=== PATIENT | male | born 1995 | race Caucasian/White ===

== ENCOUNTER 2017-04-28 21:47 | Emergency (ER) | payer BC, MEDICAID ==
[2017-04-28 21:56] VITALS: BP 100/70; PULSE 70; RESP 14; TEMP 97.9; O2SAT 98
--- NOTE | 2017-04-28 22:37 | C.PDOC ---
History Of Present Illness 21 year old male presents to the ER with a complaint of right hand pain after he tripped and landed on his right hand. 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 Time Seen by Provider: 04/28/17 22:03 Chief Complaint (Nursing): Finger,Hand,&Wrist History Per: Patient History/Exam Limitations: no limitations Onset/Duration Of Symptoms: Hrs Current Symptoms Are (Timing): Still Present Exacerbating Factor(s): Strenuous Use Of Affected Area Recent travel outside of the [place]: No Past Medical History Reviewed: Historical Data, Nursing Documentation, Vital Signs Vital Signs: Last Vital Signs Temp 97.9 F 04/28/17 21:55 Pulse 70 04/28/17 21:55 Resp 14 04/28/17 21:55 BP 100/70 04/28/17 21:55 Pulse Ox 98 04/29/17 01:42 - Medical History PMH: Asthma (seasonal asthma ) Surgical History: No Surg Hx Family History: States: Unknown Family Hx - Social History Hx Alcohol Use: Yes Hx Substance Use: No - Immunization History Hx Tetanus Toxoid Vaccination: No Hx Influenza Vaccination: No Hx Pneumococcal Vaccination: No Review Of Systems Musculoskeletal: Positive for: Hand Pain Neurological: Negative for: Weakness, Numbness Physical Exam - Physical Exam Appears: Non-toxic, No Acute Distress Skin: Warm, Dry Head: Atraumatic, Normacephalic Eye(s): bilateral: Normal Inspection Neck: Normal Male Genital: Normal Inspection Extremity: Normal ROM (x4), Tenderness (over 4th and 5th MCP with excoriation of 3rd, 4th, and 5th MCP of right hand.), Capillary Refill (<2 seconds), No Deformity, No Swelling Extremity: Bilateral: Normal Color And Temperature Pulses: Left Radial: Normal, Right Radial: Normal Neurological/Psych: Oriented x3, Normal Speech, Normal Cognition, Normal Motor, Normal Sensation ED Course And Treatment O2 Sat by Pulse Oximetry: 98 (Room air) Pulse Ox Interpretation: Normal - Other Rad Right hand x-ray X-Ray: Interpreted by Me, Viewed By Me Interpretation: no acute fractures or dislocation Progress Note: Right hand x-ray ordered, results were negative. Patient remains stable with no extremity numbness or weakness. Patient was advised to follow up with PMD in 1-2 days Disposition Counseled Patient/Family Regarding: Diagnosis, Need For Followup, Rx Given - Disposition Referrals: Moiz Vasquez MD [Staff Provider] - Disposition: HOME/ ROUTINE Disposition Time: 22:35 Condition: STABLE Additional Instructions: Please follow up with PMD Take motrin or advil for pain Apply ICE Return to ER if worse Instructions: Contusion in Adults (ED) Forms: [facility] (Hungarian) - Clinical Impression Clinical Impression: Contusion of hand, right - Scribe Statement The provider has reviewed the documentation as recorded by the Scribnah[employer] Griffin All medical record entries made by the [employer] were at my direction and personally dictated by me. I have reviewed the chart and agree that the record accurately reflects my personal performance of the history, physical exam, medical decision making, and the department course for this patient. I have also personally directed, reviewed, and agree with the discharge instructions and disposition.
--- NOTE | 2017-04-29 09:37 | RAD ---
PROCEDURE: Right Hand Radiographs. HISTORY: trauma, pain and swelling COMPARISON: None. FINDINGS: BONES: There is no acute fracture or bone destruction. Bone alignment and mineralization are normal. JOINTS: Normal. SOFT TISSUES: Normal. OTHER FINDINGS: None. IMPRESSION: No acute fracture or dislocation.
== END 2017-04-28 23:00 | disposition home or self-care (01) ==
LOC: C.ER 21:47
DX: S60.221A Contusion of right hand, initial encounter (principal); W01.0XXA Fall on same level from slipping, tripping and stumbling without subsequent striking against object, initial encounter